=== PATIENT | female | born 1990 | race Caucasian/White ===

== ENCOUNTER 2020-01-26 06:19 | Inpatient (IN) ==
[2020-01-26] MEDS ORDERED: BUTORPHANOL 2 MG/ML VIAL IV PRN (06:37)
[2020-01-26] MEDS ORDERED: BUTORPHANOL 1 MG/ML VIAL IV PRN (06:37)
[2020-01-26] MEDS ORDERED: ONDANSETRON 4 MG/2 ML VIAL IV PRN ×2 (06:37→17:36)
[2020-01-26] MEDS ORDERED: MEPERIDINE 50 MG/1 ML VIAL IM PRN (06:37)
[2020-01-26] MEDS ORDERED: ACETAMINOPHEN 325 MG TABLET PO PRN ×2 (06:37→17:36)
[2020-01-26] MEDS ORDERED: OXYTOCIN/LR 20 UNIT/1,000 ML BAG IV SCH (07:00)
[2020-01-26 07:07] LABS: Basophils % 0.2 % (0.0-0.8); Eosinophils # 0.1 10*3/uL (0.0-0.87); Eosinophils % 1.1 % (0.00-10.9); Hematocrit 37.9 VOL% (35.7-47.0); Immature Granulocytes % 0.8 %; Immature Granulocytes Absolute 0.08 #; Lymphocytes # 1.7 10*3/uL (1.4-4.0); Lymphocytes % 17.4 % (21.3-54.2); Mean Corpuscular HGB Conc 34.3 GM/DL (32-36); Mean Corpuscular Volume 91.1 FL (87-102); Mean Platelet Volume 10.9 FL (9.6-12.0); Monocytes % 7.4 % (1.7-12.7); Neutrophils % 73.1 % (38.7-73.9); Platelet Count 206 T/CUMM (130-400); Red Blood Count 4.16 MC/CUMM (3.8-5.5); Red Cell Distribution Width 14.8 % (9.3-17.3)
[2020-01-26] MEDS: LACTATED RINGERS 1,000 ML IV SCH ×2 (07:15→10:09)
[2020-01-26] MEDS ORDERED: diphenhydrAMINE 50 MG/1 ML VIAL IV PRN (08:15)
[2020-01-26] MEDS ORDERED: FAMOTIDINE 20 MG/2 ML VIAL IV ONE (08:15)
[2020-01-26] MEDS ORDERED: NALOXONE 0.4 MG/ML VIAL IV PRN (08:15)
[2020-01-26] MEDS ORDERED: hydrOXYzine HCL 25 MG/1 ML VIAL IM PRN (08:15)
[2020-01-26] MEDS ORDERED: LACTATED RINGERS 1,000 ML IV ONE (08:15)
[2020-01-26] MEDS ORDERED: PROMETHAZINE 25 MG/1 ML VIAL IM PRN (08:15)
[2020-01-26] MEDS ORDERED: CITRIC ACID/SODIUM CITRATE 30 ML UDCUP PO ONE (08:15)
[2020-01-26] MEDS ORDERED: ePHEDrine 50 MG/ML VIAL IV PRN (08:15)
[2020-01-26] MEDS ORDERED: fentaNYL 2 MCG/ROPIV 0.2% EPID 100 ML EPIDURAL SCH (08:30)
[2020-01-26 11:45] LABS: Apearance,Urine Slightly Hazy (Clear); Bilirubin,Urine Negative (Negative); Blood, Urine Small mg/dL (Negative); Glucose,Urine (UA) Negative (Negative); Ketones,Urine Negative (Negative); Mucus,Urine Occasional /LPF (Occasional); Nitrite,Urine Negative (Negative); Protein,Urine Negative; RBC,Urine 3 /HPF (0-4); Squamous Epithelial Cell,Urine Occasional /HPF (0-10); Transitional Epi Cells,Urine Occasional /HPF (<1); Urine Color Yellow (Yellow); Urine Specific Gravity 1.012 (1.001-1.035); Urine Urobilinogen < 2.0 EU/DL (0.2-1.0); WBC,Urine <1 /HPF (0-6)
[2020-01-26] MEDS ORDERED: TRANEXAMIC ACID 1,000 MG/10 ML VIAL ONE (15:05)
[2020-01-26] MEDS ORDERED: miSOPROStoL 200 MCG TABLET ONE (15:05)
[2020-01-26] MEDS ORDERED: CARBOPROST TROMETHAMINE 250 MCG/ML AMP IM ONE (15:06)
[2020-01-26] MEDS ORDERED: METHYLERGONOVINE 0.2 MG/1 ML AMP ONE (15:06)
[2020-01-26] MEDS ORDERED: SODIUM CHLORIDE 0.9% 0 ML IV ONE (15:08)
[2020-01-26] MEDS ORDERED: WITCH HAZEL PADS 100/JAR TOP PRN (17:36)
[2020-01-26] MEDS ORDERED: LANOLIN 50% CREAM 0.3 OZ TUBE TOP PRN (17:36)
[2020-01-26] MEDS ORDERED: HYDROCORTISONE 2.5% RECTAL CREAM 30 GM TUBE TOP PRN (17:36)
[2020-01-26] MEDS ORDERED: OXYTOCIN/LR 20 UNIT/1,000 ML BAG IV ONE (17:36)
[2020-01-26] MEDS ORDERED: MEASLES/MUMPS/RUBELLA VACCINE 0.5 ML VIAL SUBCUT ONE (17:36)
[2020-01-26] MEDS ORDERED: RHO(D) IMMUNE GLOBULIN 300 MCG SYRINGE IM ONE (17:36)
[2020-01-26] MEDS ORDERED: BISACODYL 10 MG SUPP RECTAL PRN (17:36)
[2020-01-26] MEDS ORDERED: oxyCODONE/ACETAMINOPHEN 5-325 MG TABLET PO PRN ×2 (17:36)
[2020-01-26] MEDS ORDERED: DIPH/TET/ACEL PERT BOOSTER VACCINE 0.5 ML VIAL IM ONE (17:36)
[2020-01-26] MEDS ORDERED: BENZOCAINE 20%/MENTHOL 0.5% SPRAY 56 GM CAN TOP PRN (17:36)
[2020-01-26 17:45] LABS: Cord Arterial Blood HCO3 21.9 MMOL/L
[2020-01-26 17:48] LABS: Cord Venous Blood HCO3 23.8 MMOL/L; Cord Venous Blood PCO2 41.9 MMHG; Cord Venous Blood PO2 32.3
[2020-01-26] MEDS: IBUPROFEN 800 MG TABLET PO PRN (19:03)
[2020-01-26] MEDS: DOCUSATE SODIUM 100 MG CAPSULE PO SCH (23:18)
[2020-01-27] MEDS: IBUPROFEN 800 MG TABLET PO PRN ×4 (01:25→22:20)
[2020-01-27 05:33] LABS: Basophils % 0.2 % (0.0-0.8); Eosinophils # 0.1 10*3/uL (0.0-0.87); Eosinophils % 0.6 % (0.00-10.9); Hematocrit 34.2 VOL% (35.7-47.0); Hemoglobin 11.6 GM/DL (12.0-16.0); Immature Granulocytes % 0.7 %; Lymphocytes # 1.8 10*3/uL (1.4-4.0); Lymphocytes % 12.8 % (21.3-54.2); Mean Corpuscular HGB Conc 33.9 GM/DL (32-36); Mean Corpuscular Volume 91.7 FL (87-102); Mean Platelet Volume 10.9 FL (9.6-12.0); Monocytes % 6.9 % (1.7-12.7); Neutrophils % 78.8 % (38.7-73.9); Platelet Count 180 T/CUMM (130-400); Red Blood Count 3.73 MC/CUMM (3.8-5.5); Red Cell Distribution Width 14.6 % (9.3-17.3); White Blood Count 14.2 T/CUMM (4-12)
[2020-01-27] MEDS ORDERED: RHO(D) IMMUNE GLOBULIN 300 MCG SYRINGE IM ONE (07:23)
[2020-01-27] MEDS: DOCUSATE SODIUM 100 MG CAPSULE PO SCH ×2 (10:14→20:54)
[2020-01-28] MEDS: IBUPROFEN 800 MG TABLET PO PRN ×2 (03:51→13:39)
[2020-01-28] MEDS: DOCUSATE SODIUM 100 MG CAPSULE PO SCH (08:46)
[2020-01-28 10:28] VITALS: BP 124/56
== END 2020-01-28 16:00 | disposition home or self-care (01) | DRG 560 ==
LOC: N.LDOUT 06:19 → N.LD 06:21 → N.OB 22:09
PROVIDERS: ADMIT Obstetrics & Gynecology; ATTEND Obstetrics & Gynecology